=== PATIENT | female | born 1965 | race African-American/Black ===

== ENCOUNTER 2018-03-25 14:33 | Emergency (ER) | payer BC ==
[~2018-03-25] VITALS: Ht 172.7 cm; Wt 73.0 kg
[~2018-03-25 14:33] MED LIST: CARV25TA47; CLON0.1P2; FELO10TA; FURO-151; INSLAN; INSULIN; LIP40; LISI40TA4; POTA10TA11
[2018-03-25] MEDS ORDERED: DEXTROSE 50% WATER 50ML SYRINGE IV ONE (14:54)
[2018-03-25 15:27] LABS: BASOPHILS % 0.3 % (0.0-2.0); EOSINOPHILS % 1.3 % (0.0-5.0); HEMATOCRIT. 43.3 % (36.0-48.0); HEMOGLOBIN. 14.4 g/dL (12.0-16.0); LYMPHOCYTES % 42.3 % (20.0-50.0); MEAN CORPUSCULAR HEMOGLOBIN 30.8 pg (28.0-32.0); MEAN CORPUSCULAR VOLUME 92.7 fL (81.0-99.0); MONOCYTES % 7.4 % (2.0-8.0); NEUTROPHILS % 48.7 % (40.0-76.0); PLATELET 292 x1000/uL (130-400); RED BLOOD CELL COUNT 4.68 mill/uL (4.2-5.4); RED CELL DISTRIBUTION WIDTH 15.1 % (11.6-14.6)
[2018-03-25 15:29] LABS: CHLORIDE 102 mEq/L (98-107)
[2018-03-25 15:36] LABS: HCG SCREEN NEGATIVE
[2018-03-25 16:12] LABS: CLARITY URINE CLEAR (CLEAR); COLOR URINE YELLOW (YELLOW); KETONES URINE NEGATIVE (NEGATIVE); LEUKOCYTE ESTERASE URINE NEGATIVE (NEGATIVE); NITRITE URINE NEGATIVE (NEGATIVE); OCCULT BLOOD URINE NEGATIVE (NEGATIVE); PH URINE 8.5 (4.5-8.0); PROTEIN URINE NEGATIVE (NEGATIVE); UROBILINOGEN URINE 0.2 E.U./dL (0.2-1.0)
[2018-03-25 16:34] VITALS: BP 148/98
== END 2018-03-25 16:46 | disposition left against medical advice (07) ==
LOC: ER 14:38 → EDBEDREQ 15:35 → ER 16:46 → CANBEDREQ 17:36
DX: E11.649 Type 2 diabetes mellitus with hypoglycemia without coma (principal); R41.82 Altered mental status, unspecified; R56.9 Unspecified convulsions; Z79.4 Long term (current) use of insulin
CPT/HCPCS: 36415; 82962; 84145; 84484; 84703; 93005; 99284